=== PATIENT | male | born 1960 | race Caucasian/White ===

== ENCOUNTER 2016-07-06 20:43 | Emergency (ER) | payer SELFPAY ==
--- NOTE | ~2016-07-06 | CT71 ---
[facility] A Service [facility] RADIOLOGY TEXT RESULTS PATIENT: PRANAV JESUS LOCATION: [place] : 64 UNIT #: [id number] AGE: [address]: Beata Branch MD SEX: M ORDER DR: [id number] [place] [id number] [facility]. [place], [place] [address] [id number] E MR#: [id number] #: [id number] NAME: PRANAV JESUS : 1960 SEX: M STUDY DATE/TIME: 07/06/2016 21:08 UNIT: [facility] ROOM: STUDY DESCRIPTION: CT Head Wo Contrast Attending Physician: Beata Branch M.D. Ordering Physician: Beata Branch M.D. Primary Care Physician: Primary Care Physician No MEDICAL IMAGING REPORT This report is preliminary unless electronic signature is present EXAM CT head, noncontrast, 07/06/2016. HISTORY 55-year-old male in the ED with altered level of consciousness, disorientation. History of alcohol abuse. TECHNIQUE CT examination of the head was performed without IV contrast. This CT exam was performed with one or more of the following radiation dose reduction techniques: Automatic exposure control, adjustment of mA and/or kV according to patient size, and iterative reconstruction. FINDINGS The images are significantly degraded by patient motion artifact. The patient was reportedly uncooperative during the examination, failing to remain motionless. No acute intracranial abnormality is demonstrated, and there is no visible skull fracture. No evidence of intracranial hemorrhage, mass, mass effect, acute cerebral edema or hydrocephalus. No change since the previous study of 04/30/2014. IMPRESSION 1. Motion limited examination. 2. The examination is grossly negative. No acute intracranial abnormality or visible skull fracture. 3. No change since 04/30/2014. Dictated by... Kumar Cordoba M.D. [facility] A Service [facility] RADIOLOGY TEXT RESULTS PATIENT: PRANAV JESUS LOCATION: [facility] : [birth year] UNIT #: [id number] AGE: [address]: Beata Branch MD SEX: M ORDER DR: THIS IS AN ELECTRONICALLY VERIFIED REPORT Kumar Cordoba M.D. at 07/07/2016 10:17 AM GIDEON/wilfredo TD: 07/07/2016 02:49 JOB #: [id number] MEDICAL IMAGING REPORT COPY
--- NOTE | ~2016-07-06 | EKG ---
PATIENT: PRANAV JESUS UNIT #: [id number] Ventricular Rate: 109 BPM Atrial Rate: 109 BPM P-R Interval: 122 ms QRS Duration: 82 ms Q-T Interval: 352 ms QTC Calculation(Bezet): 474 ms P Eva: 62 degrees Calculated R Eva: 45 degrees Calculated T Eva: 66 degrees Diagnosis Line: Sinus tachycardia Diagnosis Line: Possible Left atrial enlargement Diagnosis Line: Borderline Diagnosis Line: When compared with ECG of 31-JAN-2012 03:28, Diagnosis Line: No significant change was found Diagnosis Line: Confirmed by LAI GUILLERMO MD ([id number]) on 07/07/2016 Diagnosis Line: 5:21:24 PM INTERPRETING MD: MIMA CAPELLAN
--- NOTE | ~2016-07-06 | CR72 ---
[facility] A Service of [facility] RADIOLOGY TEXT RESULTS PATIENT: PRANAV JESUS LOCATION: [facility] : [birth year] UNIT #: [id number] AGE: [address]: Beata Branch MD SEX: M ORDER DR: [id number] [facility] [address]. [place], [place] [address] [id number] E MR#: [id number] #: [id number] NAME: PRANAV JESUS : 1960 SEX: M STUDY DATE/TIME: 07/06/2016 20:50 UNIT: [facility] ROOM: STUDY DESCRIPTION: CR Chest Single View Portable Attending Physician: Beata Branch M.D. Ordering Physician: Beata Branch M.D. Primary Care Physician: Primary Care Physician No MEDICAL IMAGING REPORT This report is preliminary unless electronic signature is present EXAM Chest x-ray, portable HISTORY Altered mental status, alcohol, COPD, short of air; symptoms started today. COMMENT Single frontal portable view of the chest timed 20:50 on 07/06/2016 is reviewed. There is a previous from 08/23/2011. There is an infiltrate in the right lower lung, possibly in the right middle lobe, possibly in the right lower lobe. There is patchier airspace disease in the left lower lung. Appearance is worrisome for aspiration or pneumonia. Clinical correlation and followup to complete clearing recommended. Lung volumes are somewhat diminished and there is probably mild cardiac silhouette enlargement on comparison to prior allowing for technical differences. The underlying distortion of parenchymal architecture likely present due to some underlying chronic obstructive lung disease. No congestive failure. No pleural effusion, no pneumothorax. IMPRESSION There is a new infiltrate in the right lower lung, patchier airspace disease at the left base. Findings most concerning for aspiration or pneumonia, with followup to complete clearing recommended. Suspect mild cardiac enlargement and underlying chronic obstructive lung disease but no acute congestive failure, pleural effusion or pneumothorax. Dictated by... [facility] A Service [facility] RADIOLOGY TEXT RESULTS PATIENT: PRANAV JESUS LOCATION: [facility] : 64 UNIT #: [id number] AGE: [address]: Beata Branch MD SEX: M ORDER DR: Jennifer Esteban M.D. THIS IS AN ELECTRONICALLY VERIFIED REPORT Jennifer Esteban M.D. at 07/07/2016 10:24 AM SNEHAL/wilfredo TD: 07/07/2016 02:41 JOB #: [id number] MEDICAL IMAGING REPORT COPY
[~2016-07-06 20:43] MED LIST: AUGMENTIN PO; BACTRIM DS TABL1 TA1 PO; BP MED; FLEXERIL10 M1 PO; FLEXERIL10 MG PO; KEFLEX500 MG PO; MULTIVITAMIN1 UDCAP PO; PREDNISONE PO; PROTONIX PO; TYLENOL #3 PO; VICODIN 5/1 TAB 5/50 PO; VICODIN 5/500 T1 TAB PO; ZOFRANODT PO
[2016-07-06 21:04] LABS: BASOPHIL# 0.1 X10e3 (0-0.3); BASOPHIL% 0.6 % (0-2.5); EOSINOPHIL# 0.1 X10e3 (0-0.7); EOSINOPHIL% 1.2 % (0.0-7.0); HEMATOCRIT 44.9 % (38.0-50.0); HEMOGLOBIN 14.5 gm/dL (13.0-16.0); LYMPHOCYTE# 2.5 X10e3 (1.0-3.5); LYMPHOCYTE% 27.5 % (17.0-45.0); MEAN CELL VOLUME 91.3 FL (83-96); MEAN CORPUSCULAR HEMOGLOBIN 29.5 PG (28-34); MEAN CORPUSCULAR HGB CONC 32.4 g/dL (30-36); MEAN PLATELET VOLUME 7.2 FL (6.5-11.5); MONOCYTE# 0.6 X10e3 (0-1.0); MONOCYTE% 6.9 % (3.0-12.0); NEUTROPHIL# 5.8 X10e3 (1.5-7.1); NEUTROPHIL% 63.8 % (40-75); PLATELET COUNT 201 X10e3 (140-420); RED BLOOD COUNT 4.92 X10e (3.90-5.60); RED CELL DISTRIBUTION WIDTH 15.5 % (11.0-15.5)
[2016-07-06 21:06] LABS: DIFF IND NO
[2016-07-06 21:12] LABS: POC - CKMB 2.1 ng/mL (0.0-7.9); POC - TROPONIN <0.05 ng/mL (<=0.05)
[2016-07-06 21:30] LABS: BLOOD UREA NITROGEN 11 mg/dL (9-23); BUN/CREATININE RATIO 15.71; CALCIUM SERUM 8.4 mg/dL (8.4-10.2); CARBON DIOXIDE 22 mmol/L (22-31); CHLORIDE 105 mmol/L (100-111); CREATININE SERUM 0.7 mg/dL (0.6-1.4); GLOM FILT RATE Estimated ABOVE60 mL/min (>60); GLUCOSE FASTING 119 mg/dL (70-110); POTASSIUM 3.9 mmol/L (3.5-5.1); SODIUM 141 mmol/L (135-145)
[2016-07-06 21:31] LABS: ALCOHOL BLOOD 448 mg/dL (0)
== END 2016-07-07 01:30 | disposition home or self-care (01) ==
LOC: CED 20:43
PROVIDERS: Emergency Medicine
DX: F10.129 Alcohol abuse with intoxication, unspecified (principal); K21.9 Gastro-esophageal reflux disease without esophagitis; J44.9 Chronic obstructive pulmonary disease, unspecified; F17.210 Nicotine dependence, cigarettes, uncomplicated
CPT/HCPCS: 36415; 70450; 71010; 80048; 82553; 84484; 85025; 93005; 99284; G0480

== ENCOUNTER 2016-08-12 09:56 | Emergency (ER) | payer SELFPAY | END 2016-08-12 11:26 | disposition home or self-care (01) | LOC: SED 09:56 | DX: F10.129 Alcohol abuse with intoxication, unspecified (principal); K21.9 Gastro-esophageal reflux disease without esophagitis; F17.200 Nicotine dependence, unspecified, uncomplicated | CPT/HCPCS: 99282 ==